=== PATIENT | female | born 1995 | race Caucasian/White ===

== ENCOUNTER 2020-12-26 13:51 | Emergency (ER) | payer OTHER ==
[~2020-12-26] VITALS: Ht 162.6 cm; Wt 81.8 kg
[2020-12-26 13:52] VITALS: BP 120/73
[2020-12-26] MEDS ORDERED: IBUPROFEN 600 MG TABLET PO ONE (15:00)
== END 2020-12-26 15:53 | disposition home or self-care (01) ==
LOC: EMS 13:59
DX: M72.2 Plantar fascial fibromatosis (principal)
CPT/HCPCS: 99282; Z7502; Z7610